=== PATIENT | male | born 1980 | race African-American/Black ===

== ENCOUNTER 2019-01-29 08:11 | Outpatient (CLI) | payer OTHER ==
--- NOTE | 2019-01-29 16:02 | MRI Report ---
Reason: PAIN IN RIGHT KNEE Procedure Date: 01/29/2019 Accession Number: [id number] / [id number] Procedure: MRI - Knee RT W/O CPT Code: FULL RESULT: EXAM: RIGHT KNEE MRI WITHOUT CONTRAST EXAM DATE: 01/29/2019 09:55 AM. CLINICAL HISTORY: Pain in right knee. COMPARISON: None. TECHNIQUE: Multiplanar, multisequence T1-weighted and fluid-sensitive sequences of the knee without contrast. Other: None. FINDINGS: Bones: No fractures or subluxations. No marrow edema. No bone lesions. Articular Cartilage: Unremarkable. Medial Meniscus: The medial meniscus is intact. Lateral Meniscus: The lateral meniscus is intact. Cruciate Ligaments: There is some increased T2 signal within intact ACL, PCL is normal. Collateral Ligaments: The medial collateral and lateral collateral ligamentous structures are intact. Tendons: The quadriceps, patellar, semimembranosus, and popliteus tendons are unremarkable. Musculature: No edema or fatty atrophy. Other: No effusion. No popliteal cyst. No loose bodies. The medial and lateral retinacula are intact. Small amount of edema is seen in the superior lateral aspect of Hoffa's fat pad. Series 501 image 26. IMPRESSION: 1. Some increased T2 signal seen within the intact ACL, PCL is normal. This is probably an ACL strain. 2. Small amount of edema seen in superior lateral aspect of Hoffa's fat pad, nonspecific. 3. Collaterals, menisci, bones and articular surfaces appear unremarkable. RADIA
== END 2019-01-29 08:12 | disposition home or self-care (01) ==
LOC: DI 08:11
PROVIDERS: ATTEND General Practice
DX: M25.561 Pain in right knee (principal); R60.0 Localized edema

== ENCOUNTER 2020-02-06 23:31 | Emergency (ER) | payer OTHER ==
--- NOTE | 2020-02-06 23:49 | ED Physician Documentation ---
PD HPI CHEST PAIN - Stated complaint Stated Complaint: CP/BACK PX - Chief complaint Chief Complaint: Cardiac - History obtained from History obtained from: Patient - History of Present Illness Timing - onset: How many days ago (3) Timing - duration: Days (3) Timing - details: Gradual onset, Constant Pain level now: 6 Quality: Pain Location: Left chest Radiation: Back Improved by: Nothing Worsened by: Other (no exacerbating factors) Associated symptoms: Shortness of air (mild, only with more intense pain). No: Diaphoresis, Nausea, Vomiting, Feeling faint / dizzy Similar symptoms before: No diagnosis (similar episodes over past 5 years, no diagnosis despite multiple workups) Recently seen: Not recently seen - Additional information Additional information: c/o 3 days of chest and left upper back pain. currently wearing holter device which he says is part of an annual cardiac checkup (per patient), although he has not received a specific cardiac diagnosis despite multiple workups Review of Systems Constitutional: reports: Reviewed and negative Cardiac: reports: Chest pain / pressure. denies: Palpitations, Pedal edema, Calf pain Respiratory: reports: Dyspnea (mild, only at times with intense chest pain). denies: Cough GI: reports: Reviewed and negative Skin: denies: Rash Musculoskeletal: reports: Back pain PD PAST MEDICAL HISTORY - Past Medical History Past Medical History: No - Past Surgical History Past Surgical History: No - Allergies Allergies/Adverse Reactions: Allergies Allergy/AdvReac Type Severity Reaction Status Date / Time No Known Drug Allergies Allergy Verified 02/06/20 23:35 - Living Situation Living Arrangement: reports: At home PD ED PE NORMAL - Vitals Vital signs reviewed: Yes - General General: Alert and oriented X 3, No acute distress, Well developed/nourished - Neck Neck: Supple, no meningeal sign - Cardiac Cardiac: RRR, No murmur, No gallop, No rub, Other (chest wall : Holter monitor device taped to left anterior chest wall) - Respiratory Respiratory: No respiratory distress, Clear bilaterally - Abdomen Abdomen: Soft, Non tender - Derm Derm: Normal color, Warm and dry, No rash - Extremities Extremities: No edema Results - Vitals Vitals: Oxygen O2 Source Room air - EKG (time done) No standard instances Rate: Rate (enter#) (62) Rhythm: NSR Chancellor: Normal Intervals: Normal MI QRS: Normal Ischemia: Normal ST segments - Labs Labs: Laboratory Tests 02/07/20 02/07/20 02/07/20 00:15 00:15 00:15 WBC 4.2 L RBC 4.91 Hgb 13.8 L Hct 41.2 L MCV 83.9 MCH 28.1 MCHC 33.5 RDW 13.4 Plt Count 203 MPV 10.2 Neut # (Auto) 1.2 L Lymph # (Auto) 2.4 [facility] # (Auto) 0.3 Eos # (Auto) 0.2 Baso # (Auto) 0.0 Absolute Nucleated RBC 0.00 Nucleated RBC % 0.0 D-Dimer 240.0 Sodium 139 Potassium 3.7 Chloride 103 Carbon Dioxide 27 Anion Gap 9.0 BUN 17 Creatinine 1.0 Estimated GFR (MDRD) 100 Glucose 83 Calcium 9.3 Total Bilirubin 0.6 AST 23 ALT 25 Alkaline Phosphatase 35 L Troponin I High Sens Total Protein 7.5 Albumin 4.5 Globulin 3.0 Albumin/Globulin Ratio 1.5 Lipase 48 02/07/20 00:15 WBC RBC Hgb Hct MCV MCH MCHC RDW Plt Count MPV Neut # (Auto) Lymph # (Auto) [facility] # (Auto) Eos # (Auto) Baso # (Auto) Absolute Nucleated RBC Nucleated RBC % D-Dimer Sodium Potassium Chloride Carbon Dioxide Anion Gap BUN Creatinine Estimated GFR (MDRD) Glucose Calcium Total Bilirubin AST ALT Alkaline Phosphatase Troponin I High Sens 2.4 Total Protein Albumin Globulin Albumin/Globulin Ratio Lipase - Rads (name of study) chest xray Radiology: Prelim report reviewed, See rad report, Other (no pacemaker; patient has holter device on surface of left chest wall) PD MEDICAL DECISION MAKING - ED course Complexity details: reviewed results, re-evaluated patient, considered differential, d/w patient Departure - Departure Disposition: 01 Home, Self Care Clinical Impression: Chest pain Qualifiers: Chest pain type: unspecified Qualified Code(s): R07.9 - Chest pain, unspecified Condition: Good Instructions: ED Chest Pain Atypical Unkn Cause Follow-Up: SUSAN Bansal [Provider Group] Discharge Date/Time: 02/07/20 01:11
[2020-02-07] MEDS ORDERED: KETOROLAC 30 MG/ML VIAL IVP STA (00:01)
[2020-02-07 00:22] LABS: BASOPHILS % (AUTO) 0.7 %; EOSINOPHILS # (AUTO) 0.2 10^3/uL (0.0-0.7); EOSINOPHILS % (AUTO) 5.5 %; HGB - HEMOGLOBIN 13.8 g/dL (14.0-18.0); LYMPHOCYTES # (AUTO) 2.4 10^3/uL (1.5-3.5); LYMPHOCYTES % (AUTO) 57.9 %; MEAN CORPUSCULAR HEMOGLOBIN 28.1 pg (27.0-31.0); MEAN CORPUSCULAR HGB CONC 33.5 g/dL (32.0-36.0); MEAN CORPUSCULAR VOLUME 83.9 fL (80.0-94.0); MEAN PLATELET VOLUME 10.2 fL (7.4-11.4); MONOCYTES # (AUTO) 0.3 10^3/uL (0.0-1.0); MONOCYTES % (AUTO) 6.9 %; NEUTROPHILS # (AUTO) 1.2 10^3/uL (1.5-6.6); NEUTROPHILS % (AUTO) 28.8 %; PLT - PLATELET COUNT 203 10^3/uL (130-450); RED BLOOD COUNT 4.91 10^6/uL (4.70-6.10); RED CELL DISTRIBUTION WIDTH 13.4 % (12.0-15.0); WHITE BLOOD COUNT 4.2 x10^3/uL (4.8-10.8)
[2020-02-07 00:34] LABS: ALBUMIN 4.5 g/dL (3.2-5.5); ALBUMIN/GLOBULIN RATIO 1.5 (1.0-2.2); BILIRUBIN,TOTAL 0.6 mg/dL (0.2-1.0); CALCIUM 9.3 mg/dL (8.5-10.3); TOTAL PROTEIN 7.5 g/dL (6.7-8.2)
[2020-02-07] MEDS ORDERED: HYDROcod/ACET 5/325 Prepack 4 PO STA (01:01)
[2020-02-07] MEDS ORDERED: CYCLOBENZAPRINE 10 MG Prepack 2 PO PRN (01:01)
[2020-02-07 01:08] VITALS: BP 117/82
--- NOTE | 2020-02-07 08:30 | XRAY Report ---
PROCEDURE: Chest 2 View X-Ray INDICATIONS: chest pain TECHNIQUE: 2 view(s) of the chest. COMPARISON: None. FINDINGS: Surgical changes and devices: Pacemaker. Lungs and pleura: No pleural effusions or pneumothorax. Lungs are clear. Mediastinum: Mediastinal contours are normal. Heart size is normal. Bones and chest wall: No suspicious bony abnormalities. Soft tissues appear unremarkable. IMPRESSION: No acute pulmonary process. The above findings are concordant with preliminary report. Reviewed by: Kathya Erickson MD on 02/07/2020 8:29 AM PDT Approved by: Kathya Erickson MD on 02/07/2020 8:29 AM PDT Station ID: [id number]
== END 2020-02-07 01:11 | disposition home or self-care (01) ==
LOC: ED 23:31
DX: R07.9 Chest pain, unspecified (principal)
CPT/HCPCS: 36415; 71046; 80053; 83690; 84484; 85025; 85379; 93005; 96374; 99284

== ENCOUNTER 2020-04-24 16:01 | Outpatient (CLI) | payer OTHER ==
--- NOTE | 2020-04-24 17:01 | MRI Report ---
PROCEDURE: Cervical Spine W/O INDICATIONS: CERVICALGIA TECHNIQUE: Noncontrast sagittal T1 spin echo and T2 fast spin echo, sagittal STIR, foraminal oblique sagittal T2 fast spin echo, and axial gradient echo or T2 fast spin echo through the cervical spine. COMPARISON: None. FINDINGS: Image quality: Excellent. Alignment and Curvature: There is normal bony alignment. Bone Marrow: Marrow demonstrates normal overall signal. Spinal Cord: Visualized spinal cord has normal size and signal. No cerebellar tonsillar herniation. Paraspinous Soft Tissues: No paravertebral masses. Prevertebral soft tissues are normal in thicknes s. C2-C3: Normal in appearance. C3-C4: Mild facet and uncovertebral hypertrophy bilaterally. No significant canal stenosis. Moderat e right and mild left foraminal stenosis. C4-C5: Minimal diffuse disc bulge. Mild facet and uncovertebral hypertrophy bilaterally. Mild canal stenosis. Mild right greater than left foraminal stenosis. C5-C6: Minimal diffuse disc bulge. Mild facet and uncovertebral hypertrophy bilaterally. Mild canal stenosis. Mild bilateral foraminal stenosis. C6-C7: Minimal disc desiccation. Mild facet and uncovertebral hypertrophy bilaterally. No canal sten osis. Mild bilateral foraminal stenosis. C7-T1: Normal in appearance. IMPRESSION: Mild multilevel degenerative disc and facet disease, as well as uncovertebral hypertrophy, causing mi ld canal and foraminal stenoses as described above. No neural impingement. Reviewed by: Jeri Vargas MD on 04/24/2020 5:00 PM PDT Approved by: Jeri Vargas MD on 04/24/2020 5:00 PM PDT Station ID: [id number]
== END 2020-04-24 16:02 | disposition home or self-care (01) ==
LOC: DI 16:01
PROVIDERS: ATTEND Student in an Organized Health Care Education/Training Program
DX: M50.321 Other cervical disc degeneration at C4-C5 level (principal); M48.02 Spinal stenosis, cervical region
CPT/HCPCS: 72141

== ENCOUNTER 2021-08-26 10:18 | Outpatient (CLI) | payer OTHER ==
--- NOTE | 2021-08-26 16:44 | MRI Report ---
PROCEDURE: Wrist RT W/O INDICATIONS: PAIN IN RIGHT WRIST TECHNIQUE: Noncontrast coronal proton density fast spin echo and T2 fast spin echo with fat saturation; coronal 3-D gradient echo, axial T1 spin echo and T2 fast spin echo with fat saturation, sagittal T1 spin ech o through the wrist. COMPARISON: None. FINDINGS: Image quality: Excellent. Bones and cartilage: The carpal bones are normally aligned. No bone marrow contusions or fractures. No evidence for avascular necrosis. Overlying cartilage surfaces appear normal. Carpal ligaments: The lunotriquetral ligament is intact. Signal abnormality within central and volar portion of lunotriquetral ligament is seen which may represent sprain/low-grade intrasubstance partia l thickness tear. No full-thickness ligament rupture. In the absence of intra-articular contrast, the extrinsic carpal ligaments are not well identified. On sagittal images, the pisohamate ligament ruben ears intact. Triangular fibrocartilage complex: Focal area of signal abnormality within central portion of triangu lar fibrocartilage is seen concerning for focal TFCC perforation. The adjacent meniscal homolog appea rs normal in the absence of intra-articular contrast. The extensor carpi ulnaris tendon is mildly th ickened at the level of ulnar styloid and triquetrum suggestive of tendinosis. Tendons and soft tissues: The carpal tunnel structures appear normal, including the median nerve. T he ulnar nerve appears normal within Guyon's canal. All six extensor tendon compartments demonstrate normal morphology, without pathologic tendon sheath fluid. No soft tissue ganglion cysts. IMPRESSION: 1. No marrow edema. No fracture or dislocation. No suspicious intraosseous lesion. 2. Suggestion of sprain/low-grade intrasubstance partial thickness tear involving scapholunate ligame nt. Lunotriquetral ligament is intact. 3. Finding is concerning for focal full-thickness perforation involving central portion of triangular fibrocartilage. 4. Suggestion of mild tendinosis involving extensor carpi ulnaris tendon at the level of ulnar styloi d and triquetrum. Rest of the wrist tendons are grossly intact. Reviewed by: Can Segovia MD on 08/26/2021 4:43 PM PST Approved by: Can Segovia MD on 08/26/2021 4:43 PM PST Station ID: [id number]
== END 2021-08-26 10:19 | disposition home or self-care (01) ==
LOC: DI 10:18
PROVIDERS: ATTEND Orthopaedic Surgery
DX: M25.531 Pain in right wrist (principal); R93.6 Abnormal findings on diagnostic imaging of limbs

== ENCOUNTER 2022-11-09 13:03 | Emergency (ER) | payer OTHER ==
[2022-11-09] MEDS ORDERED: HYDROmorphone 1 MG/ML CARPUJECT IVP STA (13:35)
[2022-11-09] MEDS ORDERED: PROPOFOL 200 MG/20 ML VIAL IVP STA ×2 (13:36→14:23)
--- NOTE | 2022-11-09 13:52 | XRAY Report ---
PROCEDURE: Shoulder 3 View LT INDICATIONS: L shoulder pain/injury TECHNIQUE: 3 views of the shoulder were acquired. COMPARISON: None. FINDINGS: Bones: Anterior-inferior dislocation at the glenohumeral joint. No suspicious bony lesions. Visual ized ribs appear intact. Soft tissues: No suspicious soft tissue calcifications. IMPRESSION: Anterior inferior dislocation of the shoulder joint. Reviewed by: Rogerio Mayen MD on 11/09/2022 1:51 PM PDT Approved by: Rogerio Mayen MD on 11/09/2022 1:51 PM PDT Station ID: [id number]
--- NOTE | 2022-11-09 14:50 | ED Physician Documentation ---
PD HPI UPPER EXT INJURY - Stated complaint Stated Complaint: DISLOCATED LT SHOULDER - Chief complaint Chief Complaint: Ext Problem - History obtained from History obtained from: Patient - Additonal information Additional information: The patient comes to the emergency department with chief complaint of Shoulder dislocation on the left. The patient has a history of a rotator cuff injury and previous multiple shoulder dislocations as recently as 17 years ago with subsequent surgery. 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 He felt a pop and sudden pain in his shoulder and states that it feels deformed. The patient states he has not had any problems with dislocations since his reparative surgery. He states he is otherwise healthy and has no other medical problems. He was not injured in any other way. He has a little bit of tingling in his upper arm but otherwise, feels okay. PD PAST MEDICAL HISTORY - Past Medical History Past Medical History: Yes - Past Surgical History Past Surgical History: No - Present Medications Home Medications: Ambulatory Orders Medication Instructions Recorded Confirmed HYDROcod/ACETAM 5/325 [[place] 5/325] 1 - 2 tablet PO Q6H PRN #14 tablet 11/09/22 - Allergies Allergies/Adverse Reactions: Allergies Allergy/AdvReac Type Severity Reaction Status Date / Time No Known Drug Allergies Allergy Verified 11/09/22 13:14 - Social History Does the pt smoke?: No Smoking Status: Never smoker Does the pt drink ETOH?: Yes Does the pt have substance abuse?: No - Immunizations Immunizations are current?: Yes - POLST Patient has POLST: No PD ED PE NORMAL - Vitals Vital signs reviewed: Yes - General General: Alert and oriented X 3, No acute distress, Well developed/nourished - HEENT HEENT: Atraumatic, PERRL, EOMI, Moist mucous membranes - Neck Neck: Supple, no meningeal sign - Cardiac Cardiac: RRR, No murmur - Respiratory Respiratory: No respiratory distress, Clear bilaterally - Derm Derm: Normal color, Warm and dry, No rash - Extremities Extremities: No edema, Other (Concavity of the left shoulder at the glenoid rim with absence of the humeral head and the glenoid fossa. Humeral head is palpable just anteromedially to the shoulder. Decreased range of motion secondary to pain and catching) - Neuro Neuro: Alert and oriented X 3, No motor deficit, No sensory deficit - Psych Psych: Normal mood, Normal affect Results - Vitals Vitals: Vital Signs - 24 hr 11/09/22 11/09/22 11/09/22 13:05 14:10 14:13 Temperature 36.3 C L Heart Rate 68 69 64 Respiratory 18 27 H 20 Rate Blood Pressure 126/82 H 130/93 H O2 Saturation 99 98 100 11/09/22 14:20 Temperature Heart Rate 80 Respiratory 14 Rate Blood Pressure 138/95 H O2 Saturation 98 Oxygen O2 Source Room air - Rads (name of study) Left shoulder x-ray Relevant Findings:: Final report received, See rad report (Anterior shoulder dislocation) Left shoulder x-ray series postreduction Relevant Findings:: Final report received, See rad report (Reduction of shoulder dislocation) Procedures - Reduction Body part reduced: Left, Shoulder Fracture or dislocation: Dislocation Anesthesia: Dilaudid, Other (Propofol) Shoulder reduction technique: Traction - counter tract Reduction aftercare: NV intact, Xray confirms reduction, Alignment improved, Sling, Patient tolerated well - Procedural sedation Sedation prep: Informed consent, Time out completed, Last meal, PE performed, ASA 1 - healthy, IV O2 monitor, RT present Sedation Medications: propofol Mallampati classification: I Patient status during sedation: Unresponsive, Vitals remained stable, Maintained airway, Recovered uneventfully Sedation recovery: Recovered uneventfully, Back to baseline Time in sedation (Minutes): 10 PD Medical Decision Making - ED course Complexity details: reviewed results, re-evaluated patient, considered dif ferential, d/w patient, d/w family ED course: Initial shoulder x-ray series revealed a left shoulder dislocation, anterior- inferior. The patient was informed of the findings and I did go through the consent form with the patient and his for procedural sedation and left shoulder reduction. The patient was agreeable to both. Patient was sedated with a total of 200 mg of propofol, with good sedation. His left shoulder was easily reduced once he was sedated. X-ray did confirm reduction. Once the patient awakened, I talked with both he and his about using the sling at night for the next several nights and nonstrenuous activity only with the left shoulder for the next 2 weeks after. The patient's been given the rest of this week off. I have discussed with him that they should have a low threshold for follow-up with orthopedics, given the patient's history with the shoulder. I prescribed analgesia for him and we have discussed the usual indications for follow-up and return. Departure - Departure Disposition: 01 Home, Self Care Clinical Impression: Dislocation, shoulder, anterior Qualifiers: Encounter type: initial encounter Laterality: left Qualified Code(s): S43.015A - Anterior dislocation of left humerus, initial encounter Condition: Stable Instructions: ED Dislocation Shoulder Redu Follow-Up: Alexander Meier MD [Provider Admit Priv/Credential] - Prescriptions: HYDROcod/ACETAM 5/325 [[place] 5/325] 1 - 2 tablet PO Q6H PRN #14 tablet PRN Reason: Pain Comments: Your shoulder was dislocated on arrival but has been reduced. There is no evidence of any broken bones. You have been given sedating medication and as such, should not drive or make any important decisions for the rest of today or tonight. You should take the rest of the week off and you may return to work on Monday if you are feeling up to it. However, you will need to be careful with your shoulder for the next couple of weeks. Please wear the sling at night to help with Stability. A prescription for pain medication has been electronically transmitted to the [facility] pharmacy in [place]. Orthopedic contact information has been provided and you may call for follow-up appointment. Forms: Activity restrictions
[2022-11-09 15:19] VITALS: BP 129/83
--- NOTE | 2022-11-09 15:21 | XRAY Report ---
PROCEDURE: Shoulder 2 View LT INDICATIONS: post-reduction TECHNIQUE: 2 views of the shoulder were acquired. COMPARISON: Prereduction films dated 11/09/2022 FINDINGS: Bones: Satisfactory reduction of anterior inferior dislocation. No fracture identified. Soft tissues: No suspicious soft tissue calcifications. IMPRESSION: Satisfactory reduction of previous dislocation. Reviewed by: Rogerio Mayen MD on 11/09/2022 3:20 PM PDT Approved by: Rogerio Mayen MD on 11/09/2022 3:20 PM PDT Station ID: [id number]
== END 2022-11-09 15:19 | disposition home or self-care (01) ==
LOC: ED 13:03
DX: S43.015A Anterior dislocation of left humerus, initial encounter (principal); Y93.6A Activity, physical games generally associated with school recess, summer camp and children; W18.39XA Other fall on same level, initial encounter; Y92.219 Unspecified school as the place of occurrence of the external cause
CPT/HCPCS: 23655; 73030; 99152; 99283; 99285; J1170; 94770

== ENCOUNTER 2024-01-06 06:25 | Outpatient (CLI) | payer OTHER | END 2024-01-06 23:59 | disposition critical access hospital (66) | LOC: EMS 06:25 | DX: R10.31 Right lower quadrant pain (principal); R11.2 Nausea with vomiting, unspecified; R10.813 Right lower quadrant abdominal tenderness; R10.811 Right upper quadrant abdominal tenderness | CPT/HCPCS: A0425; A0427 ==

== ENCOUNTER 2024-01-06 06:54 | Emergency (ER) | payer OTHER ==
[2024-01-06 07:05] VITALS: O2SAT 98
[2024-01-06] MEDS: KETOROLAC 30 MG/ML VIAL IVP STA (07:21)
--- NOTE | 2024-01-06 07:29 | ED Physician Documentation ---
History of Present Illness - Stated complaint Stated Complaint: R BACK/FLANK PX - Chief complaint Chief Complaint: Abd Pain - History obtained from History obtained from: Patient, EMS - History of Present Illness Timing: Today Pain level max: 10 Pain level now: 10 - Additonal information Additional information: Patient is a 44-year-old male who presents to the emergency department the right-sided flank pain. He states this started about 430 this morning. Radiates from the right flank to the right lower abdomen. Nothing makes it better or worse. Has not had similar symptoms previously. Recently diagnosed with strep pharyngitis and started on amoxicillin and ibuprofen. Had nausea and vomiting this morning. Received fentanyl, Toradol and Zofran with EMS. States pain has not lessened at all. No urinary symptoms. No blood in the urine. No trauma. No falls. Review of Systems Constitutional: denies: Fever, Chills Throat: reports: Sore throat GI: reports: Nausea, Vomiting Skin: denies: Rash Musculoskeletal: denies: Neck pain, Back pain Neurologic: denies: Headache PD PAST MEDICAL HISTORY - Past Medical History Past Medical History: No - Past Surgical History Past Surgical History: No - Present Medications Home Medications: Ambulatory Orders Medication Instructions Recorded Confirmed HYDROcod/ACETAM 5/325 [Salix 5/325] 1 - 2 tablet PO Q6H PRN #14 tablet 11/09/22 01/06/24 Amoxicillin 1 cap PO DAILY 01/06/24 01/06/24 Ibuprofen [Motrin] 800 mg PO Q8H PRN #30 tablet 01/06/24 Ondansetron Odt [Zofran] 4 mg TL Q6H PRN #10 tablet 01/06/24 Oxycodone HCl/Acetaminophen 1 - 2 each PO Q6H PRN #14 tablet 01/06/24 [Percocet 5-325 mg Tablet] MDD 6 tabs - Allergies Allergies/Adverse Reactions: Allergies Allergy/AdvReac Type Severity Reaction Status Date / Time No Known Drug Allergies Allergy Verified 11/09/22 13:14 - Living Situation Living Situation: reports: With family Living Arrangement: reports: At home - Social History Does the pt smoke?: No Smoking Status: Never smoker Does the pt drink ETOH?: Yes Does the pt have substance abuse?: No - Immunizations Immunizations are current?: Yes - POLST Patient has POLST: No PD ED PE NORMAL - Vitals Vital signs reviewed: Yes - General General: Alert and oriented X 3, Well developed/nourished, Other (Appears in pain) - HEENT HEENT: PERRL, Moist mucous membranes - Neck Neck: Supple, no meningeal sign - Cardiac Cardiac: RRR, Strong equal pulses - Respiratory Respiratory: No respiratory distress, Clear bilaterally - Abdomen Abdomen: Soft, Non tender, Non distended - Back Back: No CVA TTP, No spinal TTP - Derm Derm: Warm and dry - Extremities Extremities: No edema - Neuro Neuro: Alert and oriented X 3 - Psych Psych: Normal mood, Normal affect Results - Vitals Vitals: Vital Signs - 24 hr 01/06/24 01/06/24 01/06/24 06:59 09:04 10:01 Temperature 36.1 C L Heart Rate 72 72 76 Respiratory 18 16 18 Rate Blood Pressure 141/94 H 132/86 H 136/88 H O2 Saturation 98 98 98 Oxygen O2 Source Room air - Labs Labs: Laboratory Tests 01/06/24 01/06/24 01/06/24 07:21 07:21 08:55 WBC 7.2 RBC 4.69 L Hgb 12.6 L Hct 40.3 L MCV 85.9 MCH 26.9 L MCHC 31.3 L RDW 13.9 Plt Count 267 MPV 9.8 Neut # (Auto) 5.3 Lymph # (Auto) 1.4 L Kingsbury # (Auto) 0.4 Eos # (Auto) 0.1 Baso # (Auto) 0.0 Absolute Nucleated RBC 0.00 Nucleated RBC % 0.0 Sodium 136 Potassium 4.0 Chloride 103 Carbon Dioxide 29 Anion Gap 4.0 L BUN 13 Creatinine 1.1 Estimated GFR (MDRD) 88 L Glucose 139 H Calcium 9.1 Total Bilirubin 0.6 AST 80 H ALT 84 H Alkaline Phosphatase 81 Total Protein 7.7 Albumin 4.0 Globulin 3.7 Albumin/Globulin Ratio 1.1 Lipase 103 H Urine Color DARK YELLOW Urine Clarity CLEAR Urine pH 6.0 Ur Specific Everest 1.025 Urine Protein 30 H Urine Glucose (UA) NEGATIVE Urine Ketones NEGATIVE Urine Occult Blood MODERATE H Urine Nitrite NEGATIVE Urine Bilirubin NEGATIVE Urine Urobilinogen 0.2 (NORMAL) Ur Leukocyte Esterase NEGATIVE Urine RBC 0-5 Urine WBC 0-3 Ur Squamous Epith Cells RARE Squamous Urine Bacteria Few Ur Microscopic Review INDICATED Urine Culture Comments NOT INDICATED - Rads (name of study) CT abdomen and pelvis Relevant Findings:: Final report received, See rad report PD Medical Decision Making - ED course Complexity details: reviewed results, re-evaluated patient, considered differential, d/w patient ED course: Patient was given Toradol and fentanyl with EMS, was given Dilaudid and IV lidocaine here. CT scan shows a 1 mm right UVJ stone. Pain greatly improved in the emergency department. Given IV fluids. Expect that this stone will pass without difficulty. Will prescribe pain medication for home, encourage p.o. hydration and have him follow-up with his PCP for further care. Patient counseled regarding signs and symptoms for which I believe and urgent re- evaluation would be necessary. Patient with good understanding of and agreement to plan and is comfortable going home at this time This document was made in part using voice recognition software. While efforts are made to proofread this document, sound alike and grammatical errors may occur. PROCEDURE: Abdomen/Pelvis WO INDICATIONS: R flank pain TECHNIQUE: A CT scan of the abdomen and pelvis was performed without the use of intravenous contrast. Images were recorded and evaluated at appropriate window settings. Reformats: coronal and sagittal. For radiation dose reduction, the following was used: automated exposure control, adjustment of mA and/or kV according to patient size. COMPARISON: None FINDINGS: Image quality: Diagnostic Lower chest: Basal atelectasis. No pleural effusions. Mildly patulous distal esophagus. Liver: Solid organs are not well evaluated without IV contrast. No contour deforming mass. Gallbladder and biliary system: Unremarkable gallbladder. Biliary system is nondilated Pancreas: No ductal dilation Spleen: Nonenlarged Adrenals: No discrete nodules Kidneys: There are possible small renal cysts. No contour deforming solid mass. Mild right hydronephrosis secondary to a 1 mm right UVJ stone. Vessels and lymph nodes: Circumaortic left renal vein. No abdominal aortic aneurysm. No pathologic lymph nodes by size criteria. Bowel and peritoneum: No evidence of small bowel obstruction. Possible large gastric diverticulum at the fundus. The appendix is nondilated. No pathologic ascites. Body wall: Small fat-containing umbilical hernia. Pelvis: Bladder is unremarkable. The prostate is not well eval on this study Bones: No acute or suspicious osseous finding. IMPRESSION: Mild right hydroureteronephrosis secondary to an obstructing 1 mm right UVJ stone. Other findings as above Departure - Departure Disposition: Home, Self Care Clinical Impression: Ureteral stone with hydronephrosis Condition: Good Instructions: ED Stone Renal W Colic Follow-Up: your,doctor in 1 week [Other] Prescriptions: Ibuprofen [Motrin] 800 mg PO Q8H PRN #30 tablet PRN Reason: PAIN &/OR FEVER Oxycodone HCl/Acetaminophen [Percocet 5-325 mg Tablet] 1 - 2 each PO Q6H PRN #14 tablet MDD 6 tabs PRN Reason: pain Ondansetron Odt [Zofran] 4 mg TL Q6H PRN #10 tablet PRN Reason: Nausea / Vomiting Comments: You have a 1 mm right-sided kidney stone that is passing. This appears to be the cause of your pain, your symptoms are consistent with this. We have prescribed pain medication and nausea medication for home. Please take both the Motrin and oxycodone together. Do not wait until the pain has been poorly controlled as it is much more difficult to control the pain when there is a spike in pain. Make sure you are drinking plenty of water. Follow-up with your doctor for further care. Return for uncontrolled pain, fevers or other new or worrisome symptoms. Your prescriptions were sent to [facility] in [place]. I am prescribing a short course of narcotic pain medication for you. These are potentially dangerous and addictive medications that should be used carefully. These medications may constipate you. Take an [id number] stool softener (docusate) twice daily with plenty of water while taking these medications. If you go 24 hours without a bowel movement, take [id number] miralax, per package instructions. Do not drink or drive while taking these medications. If you received narcotic or sedating medications while in the emergency d epartment, do not drive for 24 hours. Store this medication in a safe, secure place and out of reach of children. It is a violation of federal law to give or sell this medication to another person or to use in a manner other than prescribed. The ED will not refill narcotic prescriptions, including prescriptions lost or stolen. To dispose of unwanted medications: 1. [facility] [address] in [place] has a medication drop box. They accept prescription medications (in pill form) Monday through Monday 9:00 a.m. to 5:00 p.m. 2. The [facility] [employer] accepts prescription medications (in pill form only) for disposal year round. Call for more information. 3. Contact the [facility] for the next [facility] sponsored prescription drug collection event. , [phone], or [phone]; PROCEDURE: Abdomen/Pelvis WO INDICATIONS: R flank pain TECHNIQUE: A CT scan of the abdomen and pelvis was performed without the use of intravenous contrast. Images were recorded and evaluated at appropriate window settings. Reformats: coronal and sagittal. For radiation dose reduction, the following was used: automated exposure control, adjustment of mA and/or kV according to patient size. COMPARISON: None FINDINGS: Image quality: Diagnostic Lower chest: Basal atelectasis. No pleural effusions. Mildly patulous distal esophagus. Liver: Solid organs are not well evaluated without IV contrast. No contour deforming mass. Gallbladder and biliary system: Unremarkable gallbladder. Biliary system is nondilated Pancreas: No ductal dilation Spleen: Nonenlarged Adrenals: No discrete nodules Kidneys: There are possible small renal cysts. No contour deforming solid mass. Mild right hydronephrosis secondary to a 1 mm right UVJ stone. Vessels and lymph nodes: Circumaortic left renal vein. No abdominal aortic aneurysm. No pathologic lymph nodes by size criteria. Bowel and peritoneum: No evidence of small bowel obstruction. Possible large gastric diverticulum at the fundus. The appendix is nondilated. No pathologic ascites. Body wall: Small fat-containing umbilical hernia. Pelvis: Bladder is unremarkable. The prostate is not well eval on this study Bones: No acute or suspicious osseous finding. IMPRESSION: Mild right hydroureteronephrosis secondary to an obstructing 1 mm right UVJ stone. Other findings as above Forms: PCP List Discharge Date/Time: 01/06/24 10:01
[2024-01-06] MEDS: HYDROmorphone 1 MG/ML CARPUJECT IVP STA ×2 (07:30→08:10)
[2024-01-06] MEDS: LIDOCAINE-MPF 2% 8 ML in SODIUM CHLORIDE 0.9% 50 ML IV STA (07:36)
[2024-01-06 07:48] LABS: ALBUMIN/GLOBULIN RATIO 1.1 (1.0-2.2); BILIRUBIN,TOTAL 0.6 mg/dL (0.2-1.0); CALCIUM 9.1 mg/dL (8.5-10.3); CREATININE 1.1 mg/dL (0.6-1.3); TOTAL PROTEIN 7.7 g/dL (6.4-8.9)
[2024-01-06 07:53] LABS: BASOPHILS % (AUTO) 0.3 %; EOSINOPHILS # (AUTO) 0.1 10^3/uL (0.0-0.7); HCT - HEMATOCRIT 40.3 % (42.0-52.0); HGB - HEMOGLOBIN 12.6 g/dL (14.0-18.0); LYMPHOCYTES # (AUTO) 1.4 10^3/uL (1.5-3.5); LYMPHOCYTES % (AUTO) 19.8 %; MEAN CORPUSCULAR HEMOGLOBIN 26.9 pg (27.0-31.0); MEAN CORPUSCULAR HGB CONC 31.3 g/dL (32.0-36.0); MEAN CORPUSCULAR VOLUME 85.9 fL (80.0-94.0); MEAN PLATELET VOLUME 9.8 fL (7.4-11.4); MONOCYTES # (AUTO) 0.4 10^3/uL (0.0-1.0); MONOCYTES % (AUTO) 5.5 %; NEUTROPHILS # (AUTO) 5.3 10^3/uL (1.5-6.6); NEUTROPHILS % (AUTO) 72.8 %; PLT - PLATELET COUNT 267 10^3/uL (130-450); RED BLOOD COUNT 4.69 10^6/uL (4.70-6.10); RED CELL DISTRIBUTION WIDTH 13.9 % (12.0-15.0); WHITE BLOOD COUNT 7.2 x10^3/uL (4.8-10.8)
--- NOTE | 2024-01-06 08:23 | CT Report ---
PROCEDURE: Abdomen/Pelvis WO INDICATIONS: R flank pain TECHNIQUE: A CT scan of the abdomen and pelvis was performed without the use of intravenous contrast. Images we re recorded and evaluated at appropriate window settings. Reformats: coronal and sagittal. For radiat ion dose reduction, the following was used: automated exposure control, adjustment of mA and/or kV ac cording to patient size. COMPARISON: None FINDINGS: Image quality: Diagnostic Lower chest: Basal atelectasis. No pleural effusions. Mildly patulous distal esophagus. Liver: Solid organs are not well evaluated without IV contrast. No contour deforming mass. Gallbladder and biliary system: Unremarkable gallbladder. Biliary system is nondilated Pancreas: No ductal dilation Spleen: Nonenlarged Adrenals: No discrete nodules Kidneys: There are possible small renal cysts. No contour deforming solid mass. Mild right hydronephr osis secondary to a 1 mm right UVJ stone. Vessels and lymph nodes: Circumaortic left renal vein. No abdominal aortic aneurysm. No pathologic ly mph nodes by size criteria. Bowel and peritoneum: No evidence of small bowel obstruction. Possible large gastric diverticulum at the fundus. The appendix is nondilated. No pathologic ascites. Body wall: Small fat-containing umbilical hernia. Pelvis: Bladder is unremarkable. The prostate is not well eval on this study Bones: No acute or suspicious osseous finding. IMPRESSION: Mild right hydroureteronephrosis secondary to an obstructing 1 mm right UVJ stone. Other findings as above Reviewed by: Joce Padilla MD on 01/06/2024 8:21 AM PDT Approved by: Joce Padilla MD on 01/06/2024 8:21 AM PDT Station ID: [id number]
[2024-01-06] MEDS: SODIUM CHLORIDE 0.9% 1,000 ML IV STA (08:50)
[2024-01-06 09:09] LABS: BILIRUBIN,URINE NEGATIVE (NEGATIVE); GLUCOSE, URINE (UA) NEGATIVE (NEGATIVE); KETONES,URINE (UA) NEGATIVE (NEGATIVE); LEUKOCYTE ESTERASE, URINE NEGATIVE (NEGATIVE); NITRITE,URINE NEGATIVE (NEGATIVE); OCCULT BLOOD,URINE MODERATE (NEGATIVE); PROTEIN,URINE 30 mg/dL (NEGATIVE); UROBILINOGEN,URINE 0.2 (NORMAL) E.U./dL (NORMAL)
[2024-01-06 09:12] LABS: CLARITY,URINE CLEAR (CLEAR)
[2024-01-06 09:49] LABS: BACTERIA,URINE Few /HPF (None Seen); RBC,URINE 0-5 /HPF (0-5); SQUAMOUS EPITHELIAL CELL,UR RARE Squamous (<= Few); WBC,URINE 0-3 /HPF (0-3)
[2024-01-06 10:03] VITALS: BP 136/88
== END 2024-01-06 10:01 | disposition home or self-care (01) ==
LOC: EDUNIT# → ED 06:54
DX: N13.2 Hydronephrosis with renal and ureteral calculous obstruction (principal)
CPT/HCPCS: 36415; 74176; 80053; 81001; 83690; 85025; 96365; 96375; 96376; 99283; 99284; J1170; J7040; 81003; 87086